=== PATIENT | female | born 1995 | race Native Hawaiian/Other Pacific Islander ===

== ENCOUNTER 2019-01-23 21:11 | Emergency (ER) | payer SELFPAY ==
[2019-01-23 21:17] VITALS: TEMP 97.9
--- NOTE | 2019-01-23 22:46 | C.PDOC ---
History Of Present Illness 23 year old female fell while going down the stairs last night landing on her rear and slipped down 2-3 steps. Patient is complaining of pain to the lower back and coccyx area. She took tylenol yesterday and today with no relief. Denies dysuria, hematuria, incontinence, weakness, or numbness. Time Seen by Provider: 01/23/19 21:22 Chief Complaint (Nursing): Back Pain History Per: Patient History/Exam Limitations: no limitations Onset/Duration Of Symptoms: Other (Last night) Current Symptoms Are (Timing): Still Present Quality Of Discomfort: Unable To Describe Previous Symptoms: None Associated Symptoms: None Recent travel outside of the [place]: No Past Medical History Reviewed: Historical Data, Nursing Documentation, Vital Signs Vital Signs: Last Vital Signs Temp 97.9 F 01/23/19 21:14 Pulse 68 01/23/19 21:14 Resp 16 01/23/19 21:14 BP 135/93 H 01/23/19 21:14 Pulse Ox 98 01/23/19 21:14 Family History: States: Unknown Family Hx - Social History Hx Alcohol Use: No Hx Substance Use: No Review Of Systems Genitourinary: Negative for: Dysuria, Incontinence, Hematuria Musculoskeletal: Positive for: Back Pain Neurological: Negative for: Weakness, Numbness Physical Exam - Physical Exam Appears: Non-toxic Skin: Normal Color, Warm Head: Atraumatic, Normacephalic Eye(s): bilateral: Normal Inspection Cardiovascular: Rhythm Regular Respiratory: Normal Breath Sounds Gastrointestinal/Abdominal: Normal Exam, Soft, No Tenderness Back: Normal Inspection, No CVA Tenderness, No Decreased ROM, No Paraspinal Tenderness, Straight Leg Raising (Negative), Other (Minimal tenderness to sacral/coccygeal area) Extremity: Normal ROM (x4) Extremity: Bilateral: Atraumatic Neurological/Psych: Oriented x3, Normal Speech, Normal Motor, Normal Sensation Gait: Steady ED Course And Treatment O2 Sat by Pulse Oximetry: 98 (Room air) Pulse Ox Interpretation: Normal - Other Rad LS spine x-ray X-Ray: Interpreted by Me, Viewed By Me Interpretation: No acute fracture or dislocation Progress Note: Toradol administered. LS spine x-ray was negative. Patient is resting comfortably in no acute distress, vitals are stable, will discharge home, advised to use donut for sitting and follow up with PMD. Reassessment Condition: Improved Disposition Counseled Patient/Family Regarding: Diagnosis, Need For Followup, Rx Given - Disposition Referrals: [facility] [Outside] Disposition: HOME/ ROUTINE Disposition Time: 22:43 Condition: STABLE Additional Instructions: PLEASE FOLLOW UP WITH PMD TAKE MOTRIN DIRECTED RETURN TO ER IF WORSE Prescriptions: Ibuprofen [Motrin] 600 mg PO Q6H #30 tab Forms: [employer] (Swedish) - Clinical Impression Clinical Impression: Coccygeal injury, Contusion of lower back, Coccygeal contusion - PA / OPTOM[employer] / Resident Statement MD/DO has reviewed & agrees with the documentation as recorded. - Scribe Statement The provider has reviewed the documentation as recorded by the Scribe José Manuel Richards All medical record entries made by the Gisselibkathy were at my direction and personally dictated by me. I have reviewed the chart and agree that the record accurately reflects my personal performance of the history, physical exam, medical decision making, and the department course for this patient. I have also personally directed, reviewed, and agree with the discharge instructions and disposition.
[2019-01-23 22:53] VITALS: BP 119/80; PULSE 59; RESP 20
[2019-01-23 23:31] VITALS: O2SAT 98
--- NOTE | 2019-01-24 10:11 | RAD ---
Date of service: 01/23/2019 PROCEDURE: Radiographs of the Lumbar Spine. HISTORY: pain COMPARISON: No prior. FINDINGS: BONES: Alignment appears satisfactory. No listhesis. No acute displaced fracture identified. DISC SPACES: Unremarkable. OTHER FINDINGS: None. IMPRESSION: No acute displaced fracture identified.
== END 2019-01-23 22:55 | disposition home or self-care (01) ==
LOC: C.ER 21:11
DX: S30.0XXA Contusion of lower back and pelvis, initial encounter (principal); W10.9XXA Fall (on) (from) unspecified stairs and steps, initial encounter
CPT/HCPCS: 72100; 81025; 96372; 99284; J1885